=== PATIENT | female | born 1990 | race Caucasian/White ===

== ENCOUNTER 2019-04-18 06:56 | Day surgery (SDC) | payer OTHER | END 2019-04-18 16:32 | disposition home or self-care (01) | LOC: CIR.AMB 06:56 → EDBD 06:56 → CIR.AMB 09:30 | DX: D06.7 Carcinoma in situ of other parts of cervix (principal) ==

== ENCOUNTER 2019-12-16 05:42 | Day surgery (SDC) | payer OTHER | END 2019-12-16 14:15 | disposition home or self-care (01) | LOC: CIR.AMB 05:42 → ADM 13:45 → CIR.AMB 13:45 | DX: D06.7 Carcinoma in situ of other parts of cervix (principal) ==